=== PATIENT | male | born 1965 | race Two or more races ===

== ENCOUNTER 2024-07-26 15:07 | Emergency (ER) | payer OTHER ==
[~2024-07-26] VITALS: Ht 165.1 cm; Wt 61.2 kg
[2024-07-26 20:55] LABS: BASO % 1.4 % (0.1-1.2); HEMATOCRIT 38.5 % (40.1-51.0); HEMOGLOBIN 12.2 g/dL (13.7-17.5); LYMPH % 25.8 % (19.3-53.1); MEAN CORPUSCULAR HEMOGLOBIN 27.8 pg (25.6-32.2); MONO % 8.3 % (4.7-12.5); NEUT # 2.95 (1.56-6.13); NEUT % 59.5 % (34.0-71.1); PLATELET COUNT 270 K/uL (163-369); RED BLOOD COUNT 4.39 M/uL (4.63-6.08)
[2024-07-26 20:56] LABS: EOS # 0.25 (0.04-0.54); LYMPH # 1.28 (1.18-3.74); MONO # 0.41 (0.24-0.82)
[2024-07-26 21:10] LABS: ALBUMIN 3.9 gm/dL (3.4-5.0); BILIRUBIN TOTAL 0.26 mg/dL (0.3-1.2); CALCIUM 8.6 mg/dL (8.5-10.1); CREATININE SERUM 0.91 mg/dL (0.70-1.30); GFR 85.27; GLOBULINA 3.2 G/DL (2.4-3.5); POTASSIUM 4.31 mEq/L (3.5-5.1); TOTAL PROTEIN 7.1 gm/dL (6.4-8.2)
== END 2024-07-27 00:09 | disposition home or self-care (01) ==
LOC: ER 15:07
PROVIDERS: Preventive Medicine Public Health & General Preventive Medicine
DX: R53.1 Weakness (principal); Z88.6 Allergy status to analgesic agent; Z88.8 Allergy status to other drugs, medicaments and biological substances; Z91.041 Radiographic dye allergy status

== ENCOUNTER 2024-08-04 12:27 | Emergency (ER) | payer OTHER ==
[~2024-08-04] VITALS: Ht 165.1 cm; Wt 56.7 kg
== END 2024-08-04 23:48 | disposition left against medical advice (07) ==
LOC: ER 12:51
DX: Z53.21 Procedure and treatment not carried out due to patient leaving prior to being seen by health care provider (principal)